=== PATIENT | male | born 1970 | race Caucasian/White ===

== ENCOUNTER → 2017-10-24 | Outpatient (CLI) | payer SELFPAY ==
[2017-10-24 14:23] LABS: ALBUMIN 3.7 GM/DL (3.2-5.2); ALBUMIN/GLOBULIN RATIO 0.86 (1.00-1.93); ALKALINE PHOSPHATASE 102 U/L (45-117); ALT/SGPT 64 U/L (12-78); ANION GAP 8 MEQ/L (8-16); AST/SGOT 23 U/L (7-37); BILIRUBIN,TOTAL 0.3 MG/DL (0.2-1.0); BLOOD UREA NITROGEN 26 MG/DL (7-18); CALCIUM LEVEL 9.7 MG/DL (8.5-10.1); CARBON DIOXIDE LEVEL 31 MEQ/L (21-32); CHLORIDE LEVEL 101 MEQ/L (98-107); FREE T4 1.29 NG/DL (0.76-1.46); GLOMERULAR FILTRATION RATE 57.3 (>60); GLUCOSE, FASTING 84 MG/DL (70-100); MAGNESIUM LEVEL 2.6 MG/DL (1.8-2.4); POTASSIUM SERUM 4.8 MEQ/L (3.5-5.1); SODIUM LEVEL 140 MEQ/L (136-145)
[2017-10-24 14:27] LABS: BASO # 0.1 10^3/uL (0.0-0.2); BASO % 0.6 % (0.0-1.0); EOS # 0.4 10^3/uL (0.0-0.50); EOS % 3.2 % (0.0-3.0); HEMATOCRIT 50.1 % (42.0-52.0); HEMOGLOBIN 16.8 g/dl (14.0-18.0); IMMATURE GRANULOCYTE % 0.8 % (0-3.0); LYMPH # 2.8 10^3/uL (1.5-4.5); LYMPH % 20.9 % (24.0-44.0); MEAN CORPUSCULAR HEMOGLOBIN 28.7 pg (27.0-33.0); MEAN CORPUSCULAR HGB CONC 33.5 g/dl (32.0-36.5); MEAN CORPUSCULAR VOLUME 85.6 fl (80.0-96.0); MONO # 0.9 10^3/uL (0.0-0.8); MONO % 6.4 % (0.0-5.0); NEUTROPHILS % 68.1 % (36.0-66.0); PLATELET COUNT, AUTOMATED 397 10^3/uL (150-450); RED BLOOD COUNT 5.85 10^6/uL (4.30-6.10); WHITE BLOOD COUNT 13.3 10^3/uL (4.0-10.0)
== END ==
LOC: M ADAMS 09:31
DX: R42 Dizziness and giddiness (principal); J20.9 Acute bronchitis, unspecified; R00.0 Tachycardia, unspecified

== ENCOUNTER → 2019-03-15 | Outpatient (CLI) | payer OTHER ==
--- NOTE | 2019-03-16 01:14 | REP ---
Clinical: The left shoulder pain without trauma . Technique: Internal rotation, external rotation, and Y view left shoulder . Findings: No acute fracture or dislocation. The acromioclavicular and glenohumeral joints are intact. No periarticular calcifications or degenerative changes are appreciated. Sub acromial space is normal. Surrounding soft tissues are unremarkable. Impression: Normal left shoulder radiographs. Electronically Signed by Lazaro Fischer MD 03/16/2019 01:06 A
== END ==
LOC: M WUC 09:19
PROVIDERS: ATTEND Physician Assistant
DX: M25.512 Pain in left shoulder (principal)

== ENCOUNTER 2019-04-09 13:14 | Emergency (ER) | payer OTHER ==
[~2019-04-09] VITALS: Ht 180.3 cm; Wt 97.7 kg
[2019-04-09] MEDS ORDERED: b/p med (13:23)
[2019-04-09] MEDS ORDERED: ACETAMINOPHEN 500 MG TAB PO ONE (16:30)
[2019-04-09] MEDS ORDERED: KETOROLAC 60 MG/2 ML VIAL (J1885) IM ONE (16:30)
[2019-04-09] MEDS ORDERED: KETO10TAB PO (17:26)
--- NOTE | 2019-04-09 17:47 | REP ---
REASON: Chronic pain. FINDINGS: The hip joint space is symmetric and relatively well maintained. There is no acute fracture or destructive osseous lesion. Electronically Signed by Reinier Nash DO 04/09/2019 07:55 P
[2019-04-09 17:52] VITALS: BP 137/90
== END 2019-04-09 17:54 | disposition home or self-care (01) ==
LOC: M ED 13:14
DX: M16.12 Unilateral primary osteoarthritis, left hip (principal); I10 Essential (primary) hypertension; G89.29 Other chronic pain; M25.562 Pain in left knee; Z72.0 Tobacco use; Z79.899 Other long term (current) drug therapy
CPT/HCPCS: 73502; 99283; J1885

== ENCOUNTER 2019-05-15 13:53 | Emergency (ER) | payer OTHER ==
[~2019-05-15] VITALS: Ht 180.3 cm; Wt 91.1 kg
[2019-05-15 13:53] VITALS: BP 167/93
[~2019-05-15 13:53] MED LIST: KETO10TAB PO; b/p med
[2019-05-15] MEDS ORDERED: LOSA50TA88 PO (13:58)
[2019-05-15] MEDS ORDERED: FISH1000 PO (13:58)
[2019-05-15] MEDS ORDERED: TETRACAINE 0.5% OPHTH SOLN 4ML OU ONE (15:30)
[2019-05-15] MEDS ORDERED: FLUORESCEIN OPHTH 1 MG STRIP OU ONE (15:30)
== END 2019-05-15 16:35 | disposition left against medical advice (07) ==
LOC: M ED 13:53
DX: H53.8 Other visual disturbances (principal); I10 Essential (primary) hypertension; F17.200 Nicotine dependence, unspecified, uncomplicated; Z79.899 Other long term (current) drug therapy

== ENCOUNTER 2019-06-12 18:21 | Emergency (ER) | payer OTHER ==
[~2019-06-12] VITALS: Ht 180.3 cm; Wt 90.9 kg
[~2019-06-12 18:21] MED LIST changes: +FISH1000 PO; +LOSA50TA88 PO
[2019-06-12] MEDS ORDERED: ACET-908 PO (18:28)
[2019-06-12] MEDS ORDERED: KETOROLAC 60 MG/2 ML VIAL (J1885) IM ONE (19:15)
[2019-06-12] MEDS ORDERED: CYCLOBENZAPRINE 10 MG TAB PO ONE (19:15)
--- NOTE | 2019-06-12 20:38 | REPVR ---
PROCEDURE INFORMATION: Exam: US Duplex Right Lower Extremity Veins, Limited Exam date and time: 06/12/2019 8:11 PM Clinical history: 48 years old, male; Pain; Leg, upper; Right TECHNIQUE: Imaging protocol: Real-time Duplex ultrasound of the Right Lower Extremity with 2-D jarrett scale, color Doppler flow and spectral waveform analysis with image documentation. Limited exam was focused on the right lower extremity veins. COMPARISON: No relevant prior studies available. FINDINGS: Right deep veins: Unremarkable. The common femoral, femoral, proximal profunda femoral and popliteal veins are patent without thrombus. Normal Doppler waveforms. Normal compressibility and/or augmentation response. Right superficial veins: Unremarkable. Saphenofemoral junction is patent without thrombus. Soft tissues: Unremarkable. IMPRESSION: No DVT of the right lower extremity veins. Electronically signed by: Rex Sandoval On 06/12/2019 20:38:24 PM
[2019-06-12 20:52] VITALS: BP 146/81
[2019-06-12] MEDS ORDERED: KETO10TAB PO (21:06)
[2019-06-12] MEDS ORDERED: CYCL5TAB PO (21:06)
== END 2019-06-12 21:19 | disposition home or self-care (01) ==
LOC: M ED 18:21
DX: M62.838 Other muscle spasm (principal); I10 Essential (primary) hypertension; F17.200 Nicotine dependence, unspecified, uncomplicated; Z79.899 Other long term (current) drug therapy; Z91.018 Allergy to other foods; Z52.3 Bone marrow donor
CPT/HCPCS: 93971; 96372; 99283; J1885

== ENCOUNTER → 2024-07-04 | Outpatient (REF) ==
[~2024-07-04] MED LIST changes: +ACET-910 PO; +CYCL5TAB PO; +LOSA50TA28 PO; -LOSA50TA88 PO
== END ==
LOC: M PLAIMG 14:59
PROVIDERS: ATTEND Internal Medicine
DX: M51.360 Other intervertebral disc degeneration, lumbar region with discogenic back pain only (principal)

== ENCOUNTER → 2025-03-20 | Outpatient (CLI) | payer OTHER ==
[~2025-03-20] MED LIST changes: -CYCL5TAB PO; +CYCL5TAB4 PO
== END ==
LOC: M RAD 07:22
PROVIDERS: ATTEND Physician Assistant Medical
DX: Z12.2 Encounter for screening for malignant neoplasm of respiratory organs (principal); Z87.891 Personal history of nicotine dependence